=== PATIENT | male | born 1950 | race African-American/Black ===

== ENCOUNTER → 2016-12-28 | Outpatient (CLI) | payer OTHER ==
[~2016-12-28] MED LIST: CARDIZEM CD240 MG PO; CARVEDILOL3.125 MG PO; CELEXA20 MG PO; FLOMAX0.4 MG PO; LOSARTAN-HCTZ1 EACH PO; MEDROL DOSPAK21 TAB PO; NICOTROL INHAL1 CAR1 IH; PERCOCET 5-3251 EACH PO; PROTONIX40 M1 PO; SPIRIVA18 MCG INH; VENTOLIN HFA 1818 GM INH
--- NOTE | ~2016-12-28 | 2DMMODE ---
[facility] [address] [place] [address] 2 D/M-MODE ECHOCARDIOGRAM Name: SHALONDAJAIMEEJOE MESA Room #: REG [facility] [id number] Admission: 12/28/16 Attend Phys: Stephanie Shin Discharge: Date of : 54 Date of Service: 12/28/16 0922 Report #: [id number] THIS REPORT FOR: //name// APPROVED REPORT Study performed: 12/28/2016 07:57:30 EXAM: Comprehensive 2D, Doppler, and color-flow Echocardiogram Patient Location: Out-Patient Status: routine BSA: 2.21 HR: 77 bpm BP: 151/111 mmHg Other Information Study Quality: Good Indications Pre-Op Hx HTN 2D Dimensions RVDd: 40.21 mm LVEF(%): 69.23 (>50%) IVSd: 11.86 (7-11mm) LVOT Diam: 21.18 (18-24mm) LVDd: 55.89 mm PWd: 10.91 (7-11mm) Ascending Ao: 37.52 (22-36mm) LVDs: 33.89 (25-40mm) Aortic Root: 36.93 mm IVC: 2.40 mm Ross's LVEF: 69.23 % Volumes Left Atrial Volume (Systole) Single Plane 4CH: 56.18 mL Single Plane 2CH: 49.21 mL LA ESV Index: 26.00 mL/m2 Aortic Valve AoV Peak Hiram.: 1.14 m/s AO Peak Gr.: 6.20 mmHg LVOT Max P.02 mmHg LVOT Max V: 0.87 m/s YOKO Vmax: 2.67 cm2 Mitral Valve E/A Ratio: 0.6 MV Decel. Time: 299.11 ms [facility] [address] [place] [address] 2 D/M-MODE ECHOCARDIOGRAM Name: JAIMEE LIZ Room #: [facility].#: [id number] Admission: 12/28/16 Attend Phys: Stephanie Shin Discharge: Date of : 54 Date of Service: 12/28/16 0922 Report #: [id number] MV E Max Hiram.: 0.44 m/s MV A Hiram.: 0.72 m/s MV PHT: 86.74 ms IVRT: 110.73 ms Pulmonary Valve PV Peak Hiram.: 0.94 m/s PV Peak Gr.: 3.56 mmHg Pulmonary Vein P Vein S: 0.61 m/s P Vein A: 0.34 m/s P Vein D: 0.29 m/s P Vein A Dur.: 124.6 msec P Vein S/D Ratio: 2.10 Tricuspid Valve TR Peak Hiram.: 2.39 m/s RAP Estimate: 10.00 mmHg TR Peak Gr.: 22.79 mmHg PA Pressure: 33.00 mmHg Left Ventricle The left ventricle is normal size. There is normal LV segmental wall motion. Borderline concentric left ventricular hypertrophy. The left ventricular systolic function is normal. The left ventricular ejection fraction is within the normal range. LVEF is 60-65%. Grade I - abnormal relaxation pattern. Right Ventricle Right ventricle is at the upper limits of normal. The right ventricular systolic function is normal. Atria The left atrium size is normal. Right atrium is dilated. Aortic Valve Aortic valve is calcified, trileaflet. No aortic regurgitation is present. There is no aortic valvular stenosis. Mitral Valve The mitral valve is normal in structure. There is no mitral valve regurgitation noted. No evidence of mitral valve stenosis. Tricuspid Valve The tricuspid valve is normal in structure. There is trace tricuspid regurgitation. The right atrial pressure is estimated at 10 mmHg. There is mild pulmonary hypertension witn an estimated PAP of [address] [place] [address] 2 D/M-MODE ECHOCARDIOGRAM Name: JAIMEE LIZ Room #: REG [facility]#: [id number] Admission: 12/28/16 Attend Phys: Stephanie Shin Discharge: Date of : 54 Date of Service: 12/28/16 0922 Report #: [id number] Pulmonic Valve The pulmonary valve is normal in structure. Trace pulmonic regurgitation. Great Vessels The aortic root is normal in size. The ascending aorta is normal in size. The IVC is mildly dilated. Pericardium There is no pericardial effusion. <Conclusion> The left ventricular systolic function is normal. There is normal LV segmental wall motion. LVEF is 60-65%. Grade I - abnormal relaxation pattern. Aortic valve is calcified, trileaflet. No aortic regurgitation or stenosis The mitral valve is normal in structure. No mitral valve regurgitation noted. Pulmonary artery pressure of 30mmHg There is no pericardial effusion. <ELECTRONICALLY SIGNED> By: Dillon Rodriguez MD, [facility] 12/28/16921 1 1 Dillon Rodriguez MD, FACC /INF
== END ==
LOC: CV 06:44
DX: Z01.818 Encounter for other preprocedural examination (principal); I10 Essential (primary) hypertension

== ENCOUNTER 2016-12-30 05:16 | Inpatient (IN) | payer OTHER ==
[2016-12-28 10:16] LABS: HEMATOCRIT 45.3 % (42.0-52.0); HEMOGLOBIN 15.3 gm/dL (14.0-18.0); MCH 30.5 pg (26.0-34.0); MCHC 33.8 g/dL (28.0-37.0); MCV 90.3 fL (80.0-100.0); RBC 5.02 mil/uL (4.50-6.00); RDW 15.2 % (10.5-14.5); WBC 8.2 thou/uL (4.0-11.0)
[2016-12-28 10:17] LABS: URINE BILIRUBIN NEGATIVE (Negative); URINE BLOOD NEGATIVE (Negative); URINE COLOR YELLOW; URINE GLUCOSE-RANDOM* NEGATIVE (Negative); URINE KETONES NEGATIVE (Negative); URINE LEUKOCYTES-REFLEX NEGATIVE (Negative); URINE PROTEIN (DIPSTICK) NEGATIVE (Negative); URINE UROBILINOGEN 0.2 E.U./dl (0.2-1.0)
[2016-12-28 10:34] LABS: ALBUMIN 3.9 g/dL (3.4-5.0); APTT 26.7 Seconds (24.5-32.8); CALCIUM 9.4 mg/dL (8.5-10.1); CREATININE 0.9 mg/dL (0.7-1.3); POTASSIUM 4.2 mmol/L (3.5-5.1); PROTIME 9.8 Seconds (9.3-11.4); TOTAL BILIRUBIN 0.5 mg/dL (<0.1-1.0); TOTAL PROTEIN 7.9 g/dL (6.4-8.2)
[~2016-12-30] VITALS: Ht 182.9 cm; Wt 100.4 kg
--- NOTE | ~2016-12-30 | S ---
[facility] [address] [place] [place] [address] SURGICAL PATH RPT PROCEDURE Name: JAIMEE DOWD Room #: 206-P DIS IN M.R.#: [id number] Admission: 12/30/16 Date of : 54 Discharge: 01/03/17 Report #: [id number] Path Case #: [id number] PATHOLOGY REPORT COLLECTION DATE: 12/30/2016 RECEIVED DATE: 12/30/2016 SUBMITTING PHYS: Dr. Rory Walls M.D. OTHER PHYS: ADDENDUM REPORT (Order Date: 01/04/2017 16:37) ADDENDUM COMMENT: Properly controlled special stains are performed. (Block G3) AFB: negative for acid-fast organisms GMS: rare possible yeast-like spherical structures; no convincing fungal organisms present Correlation with clinical history and additional laboratory data including possible serologies is recommended, if clinically indicated. The final diagnosis remains unchanged. (CLW:mgr; 01/04/2017) Professional services performed by [facility] at [facility] [address] [place] [address] Technical services performed by [facility] at [address] [place] [address], [address] [place] [address]. ELECTRONICALLY SIGNED BY: Yola Yee M.D. DATE/TIME:01/04/2017 21:17 SPECIMEN(S) RECEIVED: A.Right lower lobe B.Level 9 lymph node C.Level 8 lymph node D.Right lower lobe cyst E.Level 11 lymph node F.Level 10 lymph node G.Right level 7 lymph node * * * * * * * * * * * * FINAL DIAGNOSIS: A. "Right lower lobe," lobectomy: - INVASIVE, MODERATELY DIFFERENTIATED ADENOCARCINOMA, MEASURING 2.9 CM GROSSLY, WITH PERINEURAL INVASION AND GEOGRAPHIC NECROSIS, MARGINS FREE OF INVASIVE CARCINOMA, CLOSEST MARGIN (PARENCHYMAL-BLUE) 1.3 CM AWAY. [facility] [address] [place] [address] SURGICAL PATH RPT PROCEDURE Name: NILEJAIMEE MESA Room #: [address] [place] [address] [place] [facility].#: [id number] Admission: 12/30/16 Date of : 54 Discharge: 01/03/17 Report #: [id number] Path Case #: [id number] - Background lung parenchyma with mild emphysematous changes and focal fresh hemorrhage. - Bronchial margin with no evidence of carcinoma. - Lymph node, intraparenchymal, with no evidence of metastatic carcinoma (1 node). B. "Level 9 lymph node," biopsy: - Lymph node with no evidence of metastatic carcinoma (1 node). C. "Level 8 lymph node," biopsy: - Lymph node with no evidence of metastatic carcinoma (1 node). D. "Right lower lobe cyst," excision: - Pleura with reactive changes consistent with subpleural bleb showing chronic inflammation and dystrophic calcification. E. "Level 11 lymph node," dissection: - Lymph nodes (3) with no evidence of metastatic carcinoma (3 nodes). F. "Level 10 lymph node," dissection: - Lymph nodes (2) with no evidence of metastatic carcinoma (2 nodes). G. "Right level 7 lymph node," dissection: - Lymph nodes (8) with numerous well-formed necrotizing, hyalinized, and focally calcified granulomas and no evidence of metastatic carcinoma (8 nodes). SYNOPTIC CANCER STAGING REPORT SPECIMEN Specimen: Lobe(s) of lung Lower lobe Procedure: Lobectomy Specimen Laterality: Right TUMOR Primary Tumor Site: Lower lobe Histologic Type: Adenocarcinoma Histologic Grade: G2: Moderately differentiated Tumor Size: Greatest dimension (cm): 2.9 Additional Dimension (cm): 2.2 Additional Dimension (cm): 2.1 Tumor Focality: Unifocal Tumor Extent Visceral Pleura Invasion: Not identified Tumor Extension: Not identified Accessory Tumor Findings Lymph-Vascular Invasion: Not identified MARGINS All margins uninvolved by invasive carcinoma Distance of Invasive Carcinoma from Closest Margin: Specify (mm): 13 Margin Closest to Invasive Carcinoma: Specify margin: [address] [address] SURGICAL PATH RPT PROCEDURE Name: JAIMEE DOWD Room #: 206-P [facility] IN M.R.#: [id number] Admission: 12/30/16 Date of : 54 Discharge: 01/03/17 Report #: [id number] Path Case #: [id number] parencymal Bronchial Margin: Uninvolved by invasive carcinoma and carcinoma in situ Vascular Margin: Uninvolved by invasive carcinoma Parenchymal Margin: Uninvolved by invasive carcinoma LYMPH NODES Number of Lymph Nodes Examined: Specify number: 16 Lymph Node Involvement: No nodes involved STAGE (PTNM) Primary Tumor (pT): pT1b: Tumor greater than 2 cm, but 3 cm or less in greatest dimension, surrounded by lung or visceral pleura, without bronchoscopic evidence of invasion more proximal than the lobar bronchus (i.e., not in the main bronchus) Regional Lymph Nodes (pN): pN0: No regional lymph node metastasis COMMENT: The patient has a history of "adenocarcinoma, moderately differentiated" from a right lung mass needle core biopsy ([id number]). Special stains to further evaluate the granulomas present in specimen G are pending and will be reported as an addendum. Clinical correlation is recommended. (CLW:; 01/03/2017) PATHOLOGIST: Yola Yee M.D. REPORT ELECTRONICALLY SIGNED BY: Yola Yee M.D. DATE/TIME: 01/03/2017 22:37 * * * * * * * * * * * * GROSS PATHOLOGY: A. The first specimen is received fresh from the OR labeled, "Jaimee Dowd and right lower lobe". It consists of a 469.3 gram lobectomy specimen. The bronchial margin is identified. It is submitted for one frozen section. The frozen section is then submitted as A1. The lobe of lung is fixed in formalin. (CLW:kevin; 12/31/2016) After fixation in the lobectomy specimen measures 18.7 x 11.5 x 6.5 cm and weighs 413 g. The pleural surface has a dusky, purple-red appearance. The bronchial margin is been previously submitted for frozen section analysis. Surrounding the hilum are multiple staple lines. Additional fragmented areas are also noted. The staple lines are removed and the underlying tissue and associated fragmented areas are inked blue. Possible perihilar lymph nodes are noted measuring up to 0.6 cm. The cut surface has a pink red, spongy, congested, subcrepitant appearance. Proximally 2.5 cm from the bronchial [facility] [address] [place] [address] SURGICAL PATH RPT PROCEDURE Name: JAIMEE DOWD Room #: 206-P [facility] IN M.R.#: [id number] Admission: 12/30/16 Date of : 54 Discharge: 01/03/17 Report #: [id number] Path Case #: [id number] margin, the parenchyma is remarkable for an ill-defined, sarabia-white pink red, indurated lesion measuring 2.9 x 2.2 x 2.1 cm. This lesion grossly extends to within 0.5 cm of the closest, soft tissue margin. The lesion grossly obliterates the normal architecture. The uninvolved lung has mild emphysematous changes. No additional abnormalities are noted. Additional merchandiser retail representative sections are submitted as follows: A2 - vascular margins at hilum A3 - lesion to inked staple margin A4-A5 - additional sections of lesion A6 - peripheral emphysematous changes A7 - uninvolved parenchyma A8 - possible perihilar lymph nodes B. The specimen is received in formalin, labeled "Jaimee Nile, level IX lymph node" is a brown-black, ovoid, rubbery portion tissue consistent with lymph node measuring 1.2 x 0.7 x 0.4 cm. The cut surface is brown-black and spongy. The specimen is bisected and entirely submitted in cassette B1. C. The specimen is received in formalin, labeled "Jaimee Dowd, level VIII lymph node" is a shukla-red, rubbery portion tissue consistent with lymph node measuring 0.5 x 0.5 x 0.3 cm. The cut surface is pink-red and spongy. The specimen is bisected and entirely submitted in cassette C1. D. The specimen is received in formalin, labeled "Jaimee Dowd, right lower lobe cyst" is an ovoid, shukla, air-filled cystic structure measuring 4.0 x 2.5 x 2.0 cm. The cyst is unilocular and has a smooth, shukla inner lining. The wall thickness is up to 0.2 cm. No focal abnormalities are noted. Lap Regulator sections are submitted in cassette D1. E. The specimen is received in formalin, labeled "Jaimee Dowd, level XI lymph node" are three irregular, rubbery, brown-black portions of tissue consistent with lymph nodes ranging from 0.5 x 0.5 x 0.3 cm to 1.2 x 0.8 x 0.7 cm. The largest nodule is bisected and submitted in cassette E1 and the two smaller segments are entirely submitted in cassette E2. F. The specimen is received in formalin, labeled "Jaimee Dowd, level X lymph node" are two brown-black, irregular, rubbery portions of tissue consistent with lymph node measuring 0.6 x 0.5 x 0.4 cm and 1.1 x 1.0 x 0.5 cm. Each nodule is bisected. One nodule is submitted in cassette F1 and the second nodule is submitted in cassette F2. G. The specimen is received in formalin, labeled "Jaimee Dowd, right level VII lymph node" are multiple, brown-black, irregular, rubbery portions of tissue consistent with lymph nodes measuring 2.5 x 2.0 x 0.5 cm in aggregate. The two larger nodules are bisected. The cut surfaces of the larger fragments have a bright yellow, chalky appearance. One of the larger nodules is bisected and submitted in cassette G1, a second, larger nodule is bisected and submitted in [facility] [address] [place] [address] SURGICAL PATH RPT PROCEDURE Name: JAIMEE DOWD Room #: 206-P DIS IN M.R.#: [id number] Admission: 12/30/16 Date of : 54 Discharge: 01/03/17 Report #: [id number] Path Case #: [id number] cassette G2 and the remaining nodules are submitted in cassette G3. (P; 12/31/2016) FROZEN SECTION DIAGNOSIS: FROZEN SECTION DIAGNOSIS (Dr. Yola Yee) "Right lower lobe": - Bronchial margin with no carcinoma seen. The case is discussed with Dr. Walls and a written report is placed in the patient's chart. Testing performed by [facility] at [facility] [address] [place] [address] (CLW:kevin; 12/30/2016) CLINICAL HISTORY: Right lung cancer INITIAL CPT CODE(S): A; 68613, 73841 B; 57367 C; 82875 D; 02315 E; 84270 F; 57081 G; 18835, 53171, 75524 Professional services performed by [facility] at [facility] [address], [place] [address] Technical services performed by [facility] at [address] [place] [address], [facility] [address] [address]. [facility] [address] [place] [address] PHONE: [phone] DIRECTOR: Eliazar Fuentes M.D. * * * END OF REPORT * * *
[2016-12-30 07:30] VITALS: BP 144/99
[2016-12-30] MEDS ORDERED: NICOTROL INHAL1 CAR1 IH (08:55)
[2016-12-30 17:49] VITALS: BP 116/86
[2016-12-30 18:00] VITALS: BP 117/87
[2016-12-31 05:11] LABS: HEMATOCRIT 38.3 % (42.0-52.0); MCH 29.6 pg (26.0-34.0); MCHC 32.4 g/dL (28.0-37.0); MCV 91.5 fL (80.0-100.0); RBC 4.19 mil/uL (4.50-6.00); RDW 15.2 % (10.5-14.5); WBC 10.8 thou/uL (4.0-11.0)
[2016-12-31 05:25] LABS: ALBUMIN 3.6 g/dL (3.4-5.0); CALCIUM 8.3 mg/dL (8.5-10.1); CREATININE 0.8 mg/dL (0.7-1.3); POTASSIUM 3.8 mmol/L (3.5-5.1); TOTAL BILIRUBIN 0.6 mg/dL (<0.1-1.0); TOTAL PROTEIN 6.5 g/dL (6.4-8.2)
[2016-12-31 05:26] LABS: HEMOGLOBIN 12.4 gm/dL (14.0-18.0)
[2016-12-31 09:23] VITALS: BP 96/75
[2016-12-31 11:00] VITALS: BP 93/77
[2016-12-31 12:14] VITALS: BP 100/64
[2016-12-31 20:45] VITALS: BP 94/61
[2016-12-31 23:37] VITALS: BP 103/46
[2017-01-01 03:34] VITALS: BP 107/72
[2017-01-01 07:39] VITALS: BP 105/76
[2017-01-01 12:25] VITALS: BP 106/65
[2017-01-01 15:04] VITALS: BP 108/75
[2017-01-01 19:35] VITALS: BP 104/67
[2017-01-01 23:38] VITALS: BP 118/85
[2017-01-02 03:04] VITALS: BP 144/93
[2017-01-02 07:45] VITALS: BP 105/75
[2017-01-02 12:17] VITALS: BP 129/78
[2017-01-02 16:07] VITALS: BP 143/92
[2017-01-02 20:00] VITALS: BP 157/102
[2017-01-02 23:34] VITALS: BP 134/88
[2017-01-03 02:29] LABS: HEMATOCRIT 35.3 % (42.0-52.0); HEMOGLOBIN 11.6 gm/dL (14.0-18.0); MCH 29.6 pg (26.0-34.0); MCHC 32.9 g/dL (28.0-37.0); MCV 89.8 fL (80.0-100.0); RBC 3.93 mil/uL (4.50-6.00); RDW 14.4 % (10.5-14.5); WBC 11.4 thou/uL (4.0-11.0)
[2017-01-03 02:45] LABS: CALCIUM 8.9 mg/dL (8.5-10.1); POTASSIUM 3.9 mmol/L (3.5-5.1)
[2017-01-03 03:28] VITALS: BP 126/91
[2017-01-03 09:34] VITALS: BP 134/95
[2017-01-03] MEDS ORDERED: CARVEDILOL3.125 MG PO (11:12)
[2017-01-03 11:45] VITALS: BP 120/59
[2017-01-03 15:11] VITALS: BP 120/59
== END 2017-01-03 15:47 | disposition home or self-care (01) | DRG 164 ==
LOC: PRE → ICU 05:16 → TBA 05:16 → PRE 07:48 → ICU 17:44 → 2N 12-31 11:56
PROVIDERS: Nurse Practitioner; Thoracic Surgery (Cardiothoracic Vascular Surgery)
PROC: 0BBF0ZZ Excision of Right Lower Lung Lobe, Open Approach (ICD-10-PCS; principal; 2016-12-30)
PROC: 07B70ZZ Excision of Thorax Lymphatic, Open Approach (ICD-10-PCS; principal; 2016-12-30)
PROC: 4A133B1 Monitoring of Arterial Pressure, Peripheral, Percutaneous Approach (ICD-10-PCS; 2016-12-30)
PROC: 4A133J1 Monitoring of Arterial Pulse, Peripheral, Percutaneous Approach (ICD-10-PCS; 2016-12-30)
PROC: 03HY32Z Insertion of Monitoring Device into Upper Artery, Percutaneous Approach (ICD-10-PCS; 2016-12-30)
DX: C34.31 Malignant neoplasm of lower lobe, right bronchus or lung (principal); E87.1 Hypo-osmolality and hyponatremia; I10 Essential (primary) hypertension; N40.0 Benign prostatic hyperplasia without lower urinary tract symptoms; K21.9 Gastro-esophageal reflux disease without esophagitis; J43.8 Other emphysema; Z60.2 Problems related to living alone
CPT/HCPCS: 10081; 10204; 47405; 50010; 50101; 50249; 50386; 50417; 50497; 50558; 50739; 50740; 51301; 51437; 52265; 52301; 52303; 54118; 56519; 56524; 56525; 56526; 56528; 56529; 56639; 62110; 62900; 65020; 65040; 65043; 65075; 65105; 70005

== ENCOUNTER 2017-01-08 19:16 | Inpatient (IN) | payer OTHER ==
[~2017-01-08] VITALS: Ht 182.9 cm; Wt 98.4 kg
--- NOTE | ~2017-01-08 | EKG ---
[place] [address] [facility] [place] [address] ELECTROCARDIOGRAM REPORT Name: JAIMEE LIZARD Room #: 210-P ADM IN M.R.#: [id number] Admission: 01/08/17 Attend Phys: Arnulfo Royal MD Discharge: Date of : 54 Report #: [id number] THIS REPORT FOR: //name// [facility] ED Test Date: 2017-01-08 Test Time: 19:25:41 Pat Name: JAIMEE LIZ Department: Room: 210 Gender: M Autistic Teacher: ABILIO : 1950 Requested By: Ben Ray Order Number: [id number] MD: Dillon Rodriguez Measurements Intervals [place] Rate: 110 P: 14 KS: 150 QRS: 6 QRSD: 96 T: 39 QT: 311 QTc: 421 Interpretive Statements Sinus tachycardia Minimal ST elevation, inferior leads No previous ECG available for comparison Electronically Signed On 01-10-2017 13:39:13 CDT by Dillon Rodriguez [email or web address] <ELECTRONICALLY SIGNED> By: Dillon Rodriguez MD, [facility] 01/10/17 1339 1925 24 Dillon Rodriguez MD, FACC /EPI
[2017-01-08 19:17] VITALS: BP 135/91
[2017-01-08 19:45] LABS: ABSOLUTE NEUTROPHILS 11.6 thou/uL (1.4-8.2); BASOPHILS 0.4 % (0.0-2.0); EOSINOPHILS 0.5 % (0.0-3.0); HEMATOCRIT 36.3 % (42.0-52.0); HEMOGLOBIN 12.5 gm/dL (14.0-18.0); LYMPHOCYTES 14.6 % (24.0-44.0); MCH 30.5 pg (26.0-34.0); MCHC 34.3 g/dL (28.0-37.0); PLATELET COUNT 565 thou/uL (150-400); POLYS 78.5 % (36.0-66.0); RBC 4.08 mil/uL (4.50-6.00); RDW 14.5 % (10.5-14.5); WBC 14.8 thou/uL (4.0-11.0)
[2017-01-08 19:46] LABS: MANUAL DIFF NO
[2017-01-08 19:57] LABS: ANION GAP 8 mmol/L (7-16); BUN 12 mg/dL (7-18); CALCIUM 9.5 mg/dL (8.5-10.1); CHLORIDE 100 mmol/L (98-107); CO2 26 mmol/L (21-32); CREATININE 1.1 mg/dL (0.7-1.3); GLUCOSE 121 mg/dL (74-106); SODIUM 134 mmol/L (136-145)
[2017-01-08 20:01] LABS: APTT 29.5 Seconds (24.5-32.8)
[2017-01-08 20:06] LABS: ALBUMIN 3.3 g/dL (3.4-5.0); ALKALINE PHOSPHATASE 81 U/L (46-116); SGOT 34 U/L (15-37); SGPT 67 U/L (30-65); TOTAL BILIRUBIN 0.2 mg/dL (<0.1-1.0); TOTAL PROTEIN 7.6 g/dL (6.4-8.2); TROPONIN-I < 0.04 ng/mL (<0.04-0.07)
[2017-01-08 22:32] VITALS: BP 129/71
[2017-01-08 23:16] VITALS: BP 129/71
[2017-01-09 03:48] LABS: HEMATOCRIT 35.4 % (42.0-52.0); HEMOGLOBIN 11.9 gm/dL (14.0-18.0); MCH 29.7 pg (26.0-34.0); MCHC 33.7 g/dL (28.0-37.0); MCV 88.1 fL (80.0-100.0); RBC 4.01 mil/uL (4.50-6.00); RDW 14.3 % (10.5-14.5); WBC 12.2 thou/uL (4.0-11.0)
[2017-01-09 04:02] LABS: CALCIUM 9.1 mg/dL (8.5-10.1); CREATININE 0.9 mg/dL (0.7-1.3); POTASSIUM 4.6 mmol/L (3.5-5.1)
[2017-01-09 04:56] VITALS: BP 123/81
[2017-01-09 08:00] VITALS: BP 132/83
[2017-01-09 12:00] VITALS: BP 130/88
[2017-01-09 15:55] VITALS: BP 136/88
[2017-01-09 19:47] VITALS: BP 127/81
[2017-01-10 04:17] VITALS: BP 111/77
[2017-01-10 08:00] VITALS: BP 125/82
[2017-01-10 11:27] VITALS: BP 113/85
[2017-01-10 13:45] VITALS: BP 113/85
== END 2017-01-10 14:35 | disposition home or self-care (01) | DRG 200 ==
LOC: ER 19:16 → EROBS 20:36 → 2N 20:36
PROVIDERS: Emergency Medicine; Nurse Practitioner Family
DX: J93.9 Pneumothorax, unspecified (principal); E87.1 Hypo-osmolality and hyponatremia; I10 Essential (primary) hypertension; F32.9 Major depressive disorder, single episode, unspecified; K21.9 Gastro-esophageal reflux disease without esophagitis; D72.829 Elevated white blood cell count, unspecified; J43.9 Emphysema, unspecified; Z87.891 Personal history of nicotine dependence; Z85.118 Personal history of other malignant neoplasm of bronchus and lung; Z79.899 Other long term (current) drug therapy
CPT/HCPCS: 10081

== ENCOUNTER → 2017-01-31 | Outpatient (CLI) | payer OTHER | LOC: RAD 11:41 | DX: J90 Pleural effusion, not elsewhere classified (principal); Z98.890 Other specified postprocedural states ==

== ENCOUNTER → 2017-07-01 | Outpatient (CLI) | payer OTHER ==
[~2017-07-01] MED LIST changes: +AZITHROMYCIN 2250 MG PO; +FLONASE 0.05%50 MCG NASAL; +PREDNISONE 20 M20 MG PO; +TESSALON PERLE100 MG PO
== END ==
LOC: CAT 10:21
DX: C34.31 Malignant neoplasm of lower lobe, right bronchus or lung (principal)

== ENCOUNTER 2017-11-24 16:32 | Emergency (ER) | payer OTHER ==
[~2017-11-24] VITALS: Ht 180.3 cm; Wt 97.5 kg
--- NOTE | ~2017-11-24 | EKG ---
[address] [employer] [place] [address] ELECTROCARDIOGRAM REPORT Name: JAIMEE LIZ [facility] [id number] Admission: 11/24/17 Attend Phys: Discharge: 11/24/17 Date of : 54 Report #: [id number] THIS REPORT FOR: //name// [facility] ED Test Date: 2017-11-24 Test Time: 16:36:30 Pat Name: JAIMEE LIZ Department: Room: Gender: M Environmental Service Aide: MZOOK : 1950 Requested By: Lidia Killian Order Number: [id number] MD: Dillon Rodriguez Measurements Intervals [place] Rate: 82 P: 56 [place]: 167 QRS: 27 QRSD: 99 T: 18 QT: 346 QTc: 404 Interpretive Statements Sinus rhythm Normal tracing Compared to ECG 01/08/2017 19:25:41 Sinus tachycardia no longer present ST (T wave) deviation no longer present Electronically Signed On 11-25-2017 8:51:21 CDT by Dillon Rodriguez [email or web address] <ELECTRONICALLY SIGNED> By: Dillon Rodriguez MD, [facility] 11/25/17 0851 1636 1636 Dillon Rodriguez MD, [facility] /EPI
[~2017-11-24 16:32] MED LIST changes: -AZITHROMYCIN 2250 MG PO; -FLONASE 0.05%50 MCG NASAL; -PREDNISONE 20 M20 MG PO; -TESSALON PERLE100 MG PO
[2017-11-24 16:56] LABS: ABSOLUTE NEUTROPHILS 3.9 thou/uL (1.4-8.2); BASOPHILS 0.4 % (0.0-2.0); EOSINOPHILS 2.2 % (0.0-3.0); HEMATOCRIT 45.6 % (42.0-52.0); HEMOGLOBIN 15.2 gm/dL (14.0-18.0); LYMPHOCYTES 36.1 % (24.0-44.0); MCH 29.6 pg (26.0-34.0); MCHC 33.2 g/dL (28.0-37.0); MCV 89.2 fL (80.0-100.0); PLATELET COUNT 256 thou/uL (150-400); POLYS 53.3 % (36.0-66.0); RBC 5.11 mil/uL (4.50-6.00); RDW 15.2 % (10.5-14.5); WBC 7.4 thou/uL (4.0-11.0)
[2017-11-24 17:06] LABS: ANION GAP 8 mmol/L (7-16); BUN 11 mg/dL (7-18); CALCIUM 9.1 mg/dL (8.5-10.1); CHLORIDE 104 mmol/L (98-107); CO2 26 mmol/L (21-32); GLUCOSE 124 mg/dL (74-106); SODIUM 138 mmol/L (136-145)
[2017-11-24 17:14] LABS: TROPONIN-I <0.06 ng/mL (<0.06)
[2017-11-24] MEDS ORDERED: AZITHROMYCIN 2250 MG PO (17:44)
[2017-11-24] MEDS ORDERED: PREDNISONE 20 M20 MG PO (17:44)
[2017-11-24] MEDS ORDERED: FLONASE 0.05%50 MCG NASAL (17:44)
[2017-11-24] MEDS ORDERED: VENTOLIN HFA 1818 GM INH (17:44)
[2017-11-24] MEDS ORDERED: TESSALON PERLE100 MG PO (17:46)
== END 2017-11-24 19:31 | disposition home or self-care (01) ==
LOC: ER 16:32
PROVIDERS: Physician Assistant
DX: J43.8 Other emphysema (principal); J18.9 Pneumonia, unspecified organism; I10 Essential (primary) hypertension; K21.9 Gastro-esophageal reflux disease without esophagitis; F32.9 Major depressive disorder, single episode, unspecified; Z85.118 Personal history of other malignant neoplasm of bronchus and lung; Z87.891 Personal history of nicotine dependence